=== PATIENT | male | born 2000 | race Caucasian/White ===

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

== ENCOUNTER 2021-07-22 18:16 | Observation (INO) ==
[2021-07-22] MEDS ORDERED: SODIUM CHLORIDE 0.9% 500 ML IV ONE (18:50)
--- NOTE | 2021-07-22 18:51 | XRay Report ---
XR chest 1V portable HISTORY: 21 years-old Male Chest Pain acute atypical chest pain COMPARISON: Chest radiographs 12/09/2019 TECHNIQUE: AP view of the chest FINDINGS: The cardiomediastinal and hilar silhouettes are within normal limits. No pneumothorax, pleural effusi on, airspace consolidation or overt pulmonary edema. Sigmoidal scoliosis of the thoracic spine redemo nstrated. The bones appear grossly intact. IMPRESSION: No acute process. ACT 112: Negative or not required by law. The above report was generated using voice recognition software. It may contain grammatical, syntax o r spelling errors. Electronically signed by: Valdemar Richey M.D. 07/22/2021 6:50 PM
[2021-07-22] MEDS ORDERED: FAMOTIDINE 20MG IV PUSH 20 MG/5 ML SYR IV STA (19:03)
[2021-07-22] MEDS ORDERED: ACETAMINOPHEN 1,000 MG/100 ML VIAL IV STA (19:03)
[2021-07-22 19:04] LABS: Basophils # (auto) 0.01 K/uL (0-0.2); Basophils % (auto) 0.1 %; Eosinophils # (auto) 0.03 K/uL (0-0.5); Eosinophils % (auto) 0.3 %; Hemoglobin 15.5 g/dL (14.0-18.0); Immature Granulocytes # (auto) 0.01 K/uL (0.00-0.02); Immature Granulocytes % (auto) 0.1 %; Lymphocytes # (auto) 1.35 K/uL (1.2-3.4); Lymphocytes % (auto) 14.6 %; Mean Corpuscular Hemoglobin 29.5 pg (25-34); Mean Corpuscular Hgb Conc 34.4 g/dL (32-36); Mean Corpuscular Volume 85.6 fL (80-100); Mean Platelet Volume 11.5 fL (7.4-10.4); Monocytes # (auto) 0.81 K/uL (0.11-0.59); Monocytes % (auto) 8.8 %; Neutrophils # (auto) 7.02 K/uL (1.4-6.5); Neutrophils % (auto) 76.1 %; Platelet Count 230 K/uL (130-400); RDW Coefficient of Variation 13.4 % (11.5-14.5); RDW Standard Deviation 41.9 fL (36.4-46.3); Red Blood Count 5.26 M/uL (4.7-6.1); White Blood Count 9.23 K/uL (4.8-10.8)
[2021-07-22 19:17] LABS: INR 1.1 (0.9-1.1); Partial Thromboplastin Time 27.2 Seconds (21.0-31.0); Prothrombin Time 11.7 Seconds (9.0-12.0)
[2021-07-22 19:26] LABS: BUN Creatinine Ratio 13.1 (10-20); Calcium 9.6 mg/dl (8.5-10.1); Creatinine Clr Calc Pharmacy 113.1 ml/min; Est GFR (African American) 145.1 ml/min; Est GFR (Non-African American) 125.2 ml/min
[2021-07-22 19:37] LABS: Albumin Globulin Ratio 1.9 (0.9-2); Albumin Level 4.8 gm/dl (3.4-5.0); Bilirubin,Total 1.1 mg/dl (0.2-1.0); Globulin 2.5 gm/dl (2.5-4.0); Magnesium 2.2 mg/dl (1.7-2.4); Phosphorus 4.2 mg/dl (2.5-4.9); Total Protein 7.3 gm/dl (6.0-8.3)
[2021-07-22 19:55] LABS: Lyme Ab IgG w/WB Rflx Negative (Negative); Lyme Ab IgM w/WB Rflx Negative (Negative)
--- NOTE | 2021-07-22 20:05 | Emergency Department Note ---
Impression & Plan Rhabdomyolysis, Elevated troponin, Transaminitis ED Provider Note NAME: JAY SANDERS AGE: 21 SEX: M ARRIVES VIA: Walk-In INFORMANT: Patient ED PROVIDER(S): Margarito Freitas MD CHIEF COMPLAINT: Chest pain, Body aches. PLAN: Disposition: Admit MEDICAL DECISION MAKING: The patient is a pleasant 21-year-old gentleman with a past medical history of aspiration pneumonia complicated by mediastinitis and myocarditis admitted to [facility] in December who presents to the emergency department accompanied by his mother for evaluation of generalized body aches and feverishness with shortness of breath over the past week. He reports his symptoms began on Sunday. He denies any cough or congestion, nausea, vomiting or diarrhea. He reports that the pain is worse when he sits up from lying flat but it is not particularly worse when he is flat. He adds that it feels better once he is sitting fully upright. He denies any known COVID-19 exposures. Denies any ticks bites. Patient denies any binge drinking of alcohol. He does report he had a "few" alcoholic drinks on Sunday but feel he was ever intoxicated. He denies any falls. He reports he had routine follow-up with cardiology in [place] at [facility] and reports that his EF had improved to "51%". On arrival the patient is fatigued appearing but no acute distress, afebrile stable vital signs. He appears clinically dry. He has no joint/extremity edema. He has full range of motion of all joints. No meningismus. EKG without overt acute ischemia. CXR negative for acute cardiopulmonary process. WBC, H/H, platelets wnl. Chemistry without acidosis. Electrolytes unremarkable. LFTs with transaminitis with AST, ALT 434, 106, respectively. Total bilirubin 1.1 with direct bilirubin 0.2. CPK 11K. Initial high sensitivity Troponin elevated at 32 without recent for comparison. BNP wnl. D-dimer wnl. Procalcitonin is undetectable. Lactic acid 0.8, wnl. Lyme screen negative. Anaplasma/Babesia smear negative. Covid-19 PCR negative. Influenza and RSV PCR negative. Upon re-evaluation the patient did feel somewhat improved following IVF hydration. Finding were reviewed with the patient and his mother and they agree with plan for admission for further management. Case was discussed with Dr. Gonzalez, [facility] hospitalist, who will evaluate the patient for admission. Triage Nursing notes reviewed and agree them. Prior medical records reviewed Vital Signs: reviewed and remarkable for no significant abnormalities Differential diagnosis: Cardiac ischemia, aortic dissection, pulmonary embolism, pneumothorax, pneumonia, pericarditis, myocarditis, esophageal rupture, GERD, cholecystitis, pancreatitis, musculoskeletal, as well as other pathologies. ER treatment provided: See below. Diagnostics interpreted by me: ECG: Sinus bradycardia, 56 bpm, no ectopy, incomplete RBBB, LAFB, no overt ST elevation or depression. Cardiac Monitoring: An order for continuous cardiac monitoring was placed and demonstrated Sinus bradycardia, 56 bpm, no ectopy, Laboratory studies: See below Imaging studies: See below Consultation(s): Case was discussed with Dr. Gonzalez, [facility] hospitalist, who will evaluate the patient for admission. HPI: The patient is a pleasant 21-year-old gentleman with a past medical history of aspiration pneumonia complicated by mediastinitis and myocarditis admitted to [facility] in December who presents to the emergency department accompanied by his mother for evaluation of generalized body aches and feverishness with shortness of breath over the past week. He reports his symptoms began on Sunday. He denies any cough or congestion, nausea, vomiting or diarrhea. He reports that the pain is worse when he sits up from lying flat but it is not particularly worse when he is flat. He adds that it feels better once he is sitting fully upright. He denies any known COVID-19 exposures. Denies any ticks bites. Patient denies any binge drinking of alcohol. He does report he had a "few" alcoholic drinks on Sunday but feel he was ever intoxicated. He denies any falls. He reports he had routine follow-up with cardiology in [place] at [facility] and reports that his EF had improved to "51%". ROS: See above HPI for pertinent positives & negatives. A total of 10 systems reviewed and were otherwise negative. VITALS:See Below PHYSICAL EXAMINATION: GENERAL: Awake, alert, fatigued-appearing, in no distress HENT: Normocephalic, atraumatic. Oropharynx with dry mucous membranes and otherwise unremarkable. EYES: Normal conjunctiva. Sclera non-icteric. NECK: Supple. No nuchal rigidity. FROM. No JVD. RESPIRATORY: Clear to auscultation. CARDIAC: Regular rate, normal rhythm. Extremities warm and well perfused. Pulses equal. ABDOMEN: Soft, non-distended. No tenderness to palpation. No rebound or guarding. No masses. RECTAL: Deferred. MUSCULOSKELETAL: Chest examination reveals no tenderness. The back is symmetrical on inspection without obvious abnormality. There is no CVA tenderness to palpation. No joint edema. LOWER EXTREMITIES: Calves are equal size bilaterally and non-tender. No edema. No discoloration. NEURO: Normal sensorium. No sensory or motor deficits noted. SKIN: No rash or jaundice noted. ED COURSE: Critical Care: I have personally spent greater than 35 minutes of critical care time in the direct management of this patient. This includes bedside care, interpretation of diagnostic studies, and testing, discussion with consultants, patient, and family members, and other required patient management activities. This 35 minutes is in excess of all separately billable procedures. Margarito Freitas MD Past Med/Surg History Medical History Acute myocarditis Aspiration pneumonia Cardiomyopathy Cough Elevated troponin Nonsustained ventricular tachycardia Family History Other Family history non-contributory Social History Smoking Status: Never smoker Hx Alcohol Use: Yes Hx Substance Use: Yes Preferred Language: Martiniquais Communication Ability: Effective Polisher And Buffer Required: No Beliefs That Will Affect Care: None Current Living Situation: Other Current Living Situation Comment: Apartment with roomates Feels Safe at Home: Yes Safety Concerns: Feels Safe At This Time Assistive Devices: Glasses Allergies Allergies Allergy/AdvReac Type Severity Reaction Status Date / Time No Known Allergies Allergy Verified 07/22/21 19:17 Home Meds Home Medications Medication Instructions Recorded Confirmed acetaminophen 325 mg tablet 650 mg PO DIRECTED PRN 07/22/21 07/22/21 (Tylenol) Previous Rx's Medication Instructions Recorded metoprolol succinate 100 mg 100 mg PO DAILY #90 tab 07/18/21 tablet,extended release 24 hr Results & Data (ED) Vital Signs Vital Signs - 24 hr 07/22/21 18:29 07/22/21 19:03 07/22/21 20:00 Temperature 36.4 C L Temperature Source Temporal Artery Scan Pulse Rate 70 Pulse Rate [Right Finger] 55 L 52 L Pulse Rhythm [Right Finger] Regular Regular Pulse Strength [Right Finger] Normal Normal Respiratory Rate 18 17 17 Respiratory Effort / Characteristics Non-Labored Spontaneous Non-Labored Spontaneous Respiratory Depth Normal Normal Respiratory Pattern Blood Pressure 98/65 L Blood Pressure [Right Arm] 102/58 L 100/55 L Blood Pressure Mean 76 Blood Pressure Mean [Right Arm] 72 70 Blood Pressure Position [Right Arm] Lying Lying Pulse Oximetry 97 96 96 Oxygen Delivery Method Room Air Room Air Room Air Sepsis Recent Fever Within 48 Hours No Sepsis New/Unexplained Change in Mental Status No Sepsis Action Taken by Nursing No Action Required 07/22/21 22:18 07/22/21 23:00 07/23/21 00:24 Temperature Temperature Source Pulse Rate Pulse Rate [Right Finger] 64 55 L 55 L Pulse Rhythm [Right Finger] Regular Pulse Strength [Right Finger] Normal Respiratory Rate 17 16 16 Respiratory Effort / Characteristics Non-Labored Spontaneous Non-Labored Spontaneous Non-Labored Spontaneous Respiratory Depth Normal Normal Normal Respiratory Pattern Regular Blood Pressure Blood Pressure [Right Arm] 105/64 109/55 L 114/63 Blood Pressure Mean Blood Pressure Mean [Right Arm] 77 73 80 Blood Pressure Position [Right Arm] Lying Pulse Oximetry 100 97 98 Oxygen Delivery Method Room Air Room Air Room Air Sepsis Recent Fever Within 48 Hours Sepsis New/Unexplained Change in Mental Status Sepsis Action Taken by Nursing Laboratory Data Attestation: I reviewed the patient's lab results. Result diagrams: 07/22/21 18:53 07/22/21 18:53 Lab Results 07/22/21 07/22/21 07/22/21 Range/Units 18:32 18:53 18:53 WBC 9.23 (4.8-10.8) K/uL RBC 5.26 (4.7-6.1) M/uL Hgb 15.5 (14.0-18.0) g/dL Hct 45.0 (42-52) % MCV 85.6 (80-100) fL MCH 29.5 (25-34) pg MCHC 34.4 (32-36) g/dL RDW Std Deviation 41.9 (36.4-46.3) fL RDW Coeff of Josue 13.4 (11.5-14.5) % Plt Count 230 (130-400) K/uL MPV 11.5 H (7.4-10.4) fL Immature Gran % (Auto) 0.1 % Neut % (Auto) 76.1 % Lymph % (Auto) 14.6 % [place] % (Auto) 8.8 % Eos % (Auto) 0.3 % Baso % (Auto) 0.1 % Neut # (Auto) 7.02 H (1.4-6.5) K/uL Lymph # (Auto) 1.35 (1.2-3.4) K/uL [place] # (Auto) 0.81 H (0.11-0.59) K/uL Eos # (Auto) 0.03 (0-0.5) K/uL Baso # (Auto) 0.01 (0-0.2) K/uL Immature Gran # (Auto) 0.01 (0.00-0.02) K/uL PT (9.0-12.0) Seconds INR (0.9-1.1) APTT (21.0-31.0) Seconds PTT Ratio D-Dimer 220 (0-500) ug/L FEU Sodium (136-145) mmol/L Potassium (3.5-5.1) mmol/L Chloride (98-107) mmol/L Carbon Dioxide (21-32) mmol/L Anion Gap (3-11) BUN (6-23) mg/dl Creatinine (0.6-1.4) mg/dl Est Cr Clr Drug Dosing ml/min Est GFR ( Amer) ml/min Est GFR (Non-Af Amer) ml/min BUN/Creatinine Ratio (10-20) Glucose (70-99(Fasting)) mg/dl Lactate (0.4-2.0) mmol/L Calcium (8.5-10.1) mg/dl Phosphorus (2.5-4.9) mg/dl Magnesium (1.7-2.4) mg/dl Total Bilirubin (0.2-1.0) mg/dl Direct Bilirubin (0-0.2) mg/dl AST (13-39) U/L ALT (7-52) U/L Alkaline Phosphatase (34-104) U/L Total Creatine Kinase (30-223) U/L Troponin I High Sens 32.8 H (0-20) pg/ml B-Natriuretic Peptide (0-100) pg/ml Total Protein (6.0-8.3) gm/dl Albumin (3.4-5.0) gm/dl Globulin (2.5-4.0) gm/dl Albumin/Globulin Ratio (0.9-2) Procalcitonin (0-0.5) ng/ml Anaplasma Smear Babesia Smear Lyme Disease IgG Ab (Negative) Lyme Disease IgM Ab (Negative) SARS-CoV-2 (PCR) (Negative) Influenza Type A (PCR) (Neg) Influ A Molecular Assay Influenza Type B (PCR) (Neg) Influ B Molecular Assay RSV (RT-PCR) (Neg) SARS-CoV-2 RNA (VIRA) 07/22/21 07/22/21 07/22/21 Range/Units 18:53 18:53 18:53 WBC (4.8-10.8) K/uL RBC (4.7-6.1) M/uL Hgb (14.0-18.0) g/dL Hct (42-52) % MCV (80-100) fL MCH (25-34) pg MCHC (32-36) g/dL RDW Std Deviation (36.4-46.3) fL RDW Coeff of Josue (11.5-14.5) % Plt Count (130-400) K/uL MPV (7.4-10.4) fL Immature Gran % (Auto) % Neut % (Auto) % Lymph % (Auto) % [place] % (Auto) % Eos % (Auto) % Baso % (Auto) % Neut # (Auto) (1.4-6.5) K/uL Lymph # (Auto) (1.2-3.4) K/uL Col[place] # (Auto) (0.11-0.59) K/uL Eos # (Auto) (0-0.5) K/uL Baso # (Auto) (0-0.2) K/uL Immature Gran # (Auto) (0.00-0.02) K/uL PT 11.7 (9.0-12.0) Seconds INR 1.1 (0.9-1.1) APTT 27.2 (21.0-31.0) Seconds PTT Ratio 1.0 D-Dimer (0-500) ug/L FEU Sodium 137 (136-145) mmol/L Potassium 4.0 (3.5-5.1) mmol/L Chloride 103 (98-107) mmol/L Carbon Dioxide 27 (21-32) mmol/L Anion Gap 7 (3-11) BUN 11 (6-23) mg/dl Creatinine 0.84 (0.6-1.4) mg/dl Est Cr Clr Drug Dosing 113.1 ml/min Est GFR ( Amer) 145.1 ml/min Est GFR (Non-Af Amer) 125.2 ml/min BUN/Creatinine Ratio 13.1 (10-20) Glucose 82 (70-99(Fasting)) mg/dl Lactate (0.4-2.0) mmol/L Calcium 9.6 (8.5-10.1) mg/dl Phosphorus 4.2 (2.5-4.9) mg/dl Magnesium 2.2 (1.7-2.4) mg/dl Total Bilirubin 1.1 H (0.2-1.0) mg/dl Direct Bilirubin (0-0.2) mg/dl AST 434 H (13-39) U/L ALT 106 H (7-52) U/L Alkaline Phosphatase 51 (34-104) U/L Total Creatine Kinase 56435 H (30-223) U/L Troponin I High Sens (0-20) pg/ml B-Natriuretic Peptide (0-100) pg/ml Total Protein 7.3 (6.0-8.3) gm/dl Albumin 4.8 (3.4-5.0) gm/dl Globulin 2.5 (2.5-4.0) gm/dl Albumin/Globulin Ratio 1.9 (0.9-2) Procalcitonin (0-0.5) ng/ml Anaplasma Smear Babesia Smear Lyme Disease IgG Ab Negative (Negative) Lyme Disease IgM Ab Negative (Negative) SARS-CoV-2 (PCR) (Negative) Influenza Type A (PCR) (Neg) Influ A Molecular Assay Influenza Type B (PCR) (Neg) Influ B Molecular Assay RSV (RT-PCR) (Neg) SARS-CoV-2 RNA (VIRA) 07/22/21 07/22/21 07/22/21 Range/Units 18:53 18:53 18:53 WBC (4.8-10.8) K/uL RBC (4.7-6.1) M/uL Hgb (14.0-18.0) g/dL Hct (42-52) % MCV (80-100) fL MCH (25-34) pg MCHC (32-36) g/dL RDW Std Deviation (36.4-46.3) fL RDW Coeff of Josue (11.5-14.5) % Plt Count (130-400) K/uL MPV (7.4-10.4) fL Immature Gran % (Auto) % Neut % (Auto) % Lymph % (Auto) % Col[place] % (Auto) % Eos % (Auto) % Baso % (Auto) % Neut # (Auto) (1.4-6.5) K/uL Lymph # (Auto) (1.2-3.4) K/uL [place] # (Auto) (0.11-0.59) K/uL Eos # (Auto) (0-0.5) K/uL Baso # (Auto) (0-0.2) K/uL Immature Gran # (Auto) (0.00-0.02) K/uL PT (9.0-12.0) Seconds INR (0.9-1.1) APTT (21.0-31.0) Seconds PTT Ratio D-Dimer (0-500) ug/L FEU Sodium (136-145) mmol/L Potassium (3.5-5.1) mmol/L Chloride (98-107) mmol/L Carbon Dioxide (21-32) mmol/L Anion Gap (3-11) BUN (6-23) mg/dl Creatinine (0.6-1.4) mg/dl Est Cr Clr Drug Dosing ml/min Est GFR ( Amer) ml/min Est GFR (Non-Af Amer) ml/min BUN/Creatinine Ratio (10-20) Glucose (70-99(Fasting)) mg/dl Lactate (0.4-2.0) mmol/L Calcium (8.5-10.1) mg/dl Phosphorus (2.5-4.9) mg/dl Magnesium (1.7-2.4) mg/dl Total Bilirubin (0.2-1.0) mg/dl Direct Bilirubin 0.2 (0-0.2) mg/dl AST (13-39) U/L ALT (7-52) U/L Alkaline Phosphatase (34-104) U/L Total Creatine Kinase (30-223) U/L Troponin I High Sens (0-20) pg/ml B-Natriuretic Peptide (0-100) pg/ml Total Protein (6.0-8.3) gm/dl Albumin (3.4-5.0) gm/dl Globulin (2.5-4.0) gm/dl Albumin/Globulin Ratio (0.9-2) Procalcitonin < 0.05 (0-0.5) ng/ml Anaplasma Smear See Comment Babesia Smear See Comment Lyme Disease IgG Ab (Negative) Lyme Disease IgM Ab (Negative) SARS-CoV-2 (PCR) (Negative) Influenza Type A (PCR) (Neg) Influ A Molecular Assay Influenza Type B (PCR) (Neg) Influ B Molecular Assay RSV (RT-PCR) (Neg) SARS-CoV-2 RNA (VIRA) 07/22/21 07/22/21 07/22/21 Range/Units 19:08 19:08 19:08 WBC (4.8-10.8) K/uL RBC (4.7-6.1) M/uL Hgb (14.0-18.0) g/dL Hct (42-52) % MCV (80-100) fL MCH (25-34) pg MCHC (32-36) g/dL RDW Std Deviation (36.4-46.3) fL RDW Coeff of Josue (11.5-14.5) % Plt Count (130-400) K/uL MPV (7.4-10.4) fL Immature Gran % (Auto) % Neut % (Auto) % Lymph % (Auto) % [place] % (Auto) % Eos % (Auto) % Baso % (Auto) % Neut # (Auto) (1.4-6.5) K/uL Lymph # (Auto) (1.2-3.4) K/uL [place] # (Auto) (0.11-0.59) K/uL Eos # (Auto) (0-0.5) K/uL Baso # (Auto) (0-0.2) K/uL Immature Gran # (Auto) (0.00-0.02) K/uL PT (9.0-12.0) Seconds INR (0.9-1.1) APTT (21.0-31.0) Seconds PTT Ratio D-Dimer (0-500) ug/L FEU Sodium (136-145) mmol/L Potassium (3.5-5.1) mmol/L Chloride (98-107) mmol/L Carbon Dioxide (21-32) mmol/L Anion Gap (3-11) BUN (6-23) mg/dl Creatinine (0.6-1.4) mg/dl Est Cr Clr Drug Dosing ml/min Est GFR ( Amer) ml/min Est GFR (Non-Af Amer) ml/min BUN/Creatinine Ratio (10-20) Glucose (70-99(Fasting)) mg/dl Lactate (0.4-2.0) mmol/L Calcium (8.5-10.1) mg/dl Phosphorus (2.5-4.9) mg/dl Magnesium (1.7-2.4) mg/dl Total Bilirubin (0.2-1.0) mg/dl Direct Bilirubin (0-0.2) mg/dl AST (13-39) U/L ALT (7-52) U/L Alkaline Phosphatase (34-104) U/L Total Creatine Kinase (30-223) U/L Troponin I High Sens (0-20) pg/ml B-Natriuretic Peptide (0-100) pg/ml Total Protein (6.0-8.3) gm/dl Albumin (3.4-5.0) gm/dl Globulin (2.5-4.0) gm/dl Albumin/Globulin Ratio (0.9-2) Procalcitonin (0-0.5) ng/ml Anaplasma Smear Babesia Smear Lyme Disease IgG Ab (Negative) Lyme Disease IgM Ab (Negative) SARS-CoV-2 (PCR) NEGATIVE (Negative) Influenza Type A (PCR) Negative (Neg) Influ A Molecular Assay Cancelled Influenza Type B (PCR) Negative (Neg) Influ B Molecular Assay Cancelled RSV (RT-PCR) Negative (Neg) SARS-CoV-2 RNA (VIRA) Cancelled 07/22/21 07/22/21 Range/Units 21:24 21:26 WBC (4.8-10.8) K/uL RBC (4.7-6.1) M/uL Hgb (14.0-18.0) g/dL Hct (42-52) % MCV (80-100) fL MCH (25-34) pg MCHC (32-36) g/dL RDW Std Deviation (36.4-46.3) fL RDW Coeff of Josue (11.5-14.5) % Plt Count (130-400) K/uL MPV (7.4-10.4) fL Immature Gran % (Auto) % Neut % (Auto) % Lymph % (Auto) % [place] % (Auto) % Eos % (Auto) % Baso % (Auto) % Neut # (Auto) (1.4-6.5) K/uL Lymph # (Auto) (1.2-3.4) K/uL [place] # (Auto) (0.11-0.59) K/uL Eos # (Auto) (0-0.5) K/uL Baso # (Auto) (0-0.2) K/uL Immature Gran # (Auto) (0.00-0.02) K/uL PT (9.0-12.0) Seconds INR (0.9-1.1) APTT (21.0-31.0) Seconds PTT Ratio D-Dimer (0-500) ug/L FEU Sodium (136-145) mmol/L Potassium (3.5-5.1) mmol/L Chloride (98-107) mmol/L Carbon Dioxide (21-32) mmol/L Anion Gap (3-11) BUN (6-23) mg/dl Creatinine (0.6-1.4) mg/dl Est Cr Clr Drug Dosing ml/min Est GFR ( Amer) ml/min Est GFR (Non-Af Amer) ml/min BUN/Creatinine Ratio (10-20) Glucose (70-99(Fasting)) mg/dl Lactate 0.7 (0.4-2.0) mmol/L Calcium (8.5-10.1) mg/dl Phosphorus (2.5-4.9) mg/dl Magnesium (1.7-2.4) mg/dl Total Bilirubin (0.2-1.0) mg/dl Direct Bilirubin (0-0.2) mg/dl AST (13-39) U/L ALT (7-52) U/L Alkaline Phosphatase (34-104) U/L Total Creatine Kinase (30-223) U/L Troponin I High Sens (0-20) pg/ml B-Natriuretic Peptide 18 (0-100) pg/ml Total Protein (6.0-8.3) gm/dl Albumin (3.4-5.0) gm/dl Globulin (2.5-4.0) gm/dl Albumin/Globulin Ratio (0.9-2) Procalcitonin (0-0.5) ng/ml Anaplasma Smear Babesia Smear Lyme Disease IgG Ab (Negative) Lyme Disease IgM Ab (Negative) SARS-CoV-2 (PCR) (Negative) Influenza Type A (PCR) (Neg) Influ A Molecular Assay Influenza Type B (PCR) (Neg) Influ B Molecular Assay RSV (RT-PCR) (Neg) SARS-CoV-2 RNA (VIRA) Administered Medications Discontinued Medications Sodium Chloride (Nss) 500 mls @ 999 mls/hr IV .Q31M ONE Stop: 07/22/21 19:20 Last Infusion: 07/22/21 19:45 Dose: 0 mls/hr Documented by: [id number] Admin: 07/22/21 19:17 Dose: 999 mls/hr Documented by: [id number] Acetaminophen (Ofirmev) 1,000 mg in 100 mls @ 400 mls/hr IV NOW STA Stop: 07/22/21 19:17 Last Infusion: 07/22/21 19:25 Dose: 0 mls/hr Documented by: [id number] Admin: 07/22/21 19:12 Dose: 400 mls/hr Documented by: [id number] Famotidine (Pepcid 20mg Iv Push) 20 mg in 5 mls @ 2.5 mls/min IV NOW STA Stop: 07/22/21 19:04 Last Admin: 07/22/21 19:12 Dose: 2.5 mls/min Documented by: [id number] Sodium Chloride (Nss 1000ml) 1,000 mls @ 999 mls/hr IV .Q1H1M ONE Stop: 07/22/21 22:03 Last Infusion: 07/22/21 22:28 Dose: 0 mls/hr Documented by: [id number] Admin: 07/22/21 21:28 Dose: 999 mls/hr Documented by: [id number] Imaging Data Radiologist's Impression: Chest X-Ray 04/15/22 18:32 XR chest 1V portable HISTORY: 21 years-old Male Chest Pain acute atypical chest pain COMPARISON: Chest radiographs 12/09/2019 TECHNIQUE: AP view of the chest FINDINGS: The cardiomediastinal and hilar silhouettes are within normal limits. No pneumothorax, pleural effusion, airspace consolidation or overt pulmonary edema. Sigmoidal scoliosis of the thoracic spine redemonstrated. The bones appear grossly intact. IMPRESSION: No acute process. ACT 112: Negative or not required by law. The above report was generated using voice recognition software. It may contain grammatical, syntax or spelling errors. Electronically signed by: Valdemar Richey M.D. 07/22/2021 6:50 PM Discharge Plan Visit Data Chief Complaint: Cardiac Assessment Stated Complaint: FATIGUE, MUSCLE PAIN, WEAKNESS, SOB ED Provider: Margarito Freitas Discharge Problem: Rhabdomyolysis, Elevated troponin, Transaminitis Patient Disposition: Admitted As Inpatient Discharge Problem: Rhabdomyolysis Qualifiers: Rhabdomyolysis type: non-traumatic Qualified Code(s): M62.82 - Rhabdomyolysis
[2021-07-22 20:09] LABS: Influenza A virus by PCR Negative (Neg); Influenza B virus by PCR Negative (Neg); RSV by PCR Negative (Neg); SARS CoV2 RNA(COVID-19) InHosp NEGATIVE (Negative)
[2021-07-22] MEDS ORDERED: SODIUM CHLORIDE 0.9% 1000ML 1,000 ML IV ONE (21:03)
[2021-07-22 21:22] LABS: D Dimer 220 ug/L FEU (0-500)
--- NOTE | 2021-07-23 00:05 | History & Physical Report ---
Date of Service July 23, 2021 Assessment & Plan (1) Chest discomfort: (2) Elevated LFTs: (3) Elevated troponin: (4) Elevated creatine kinase: Plan: Macho Ely is a 21-year-old male with a past medical history of aspiration pneumonia with mediastinitis and myocarditis with resulting reduced ejection fraction who presents today due to a 5-day history of chest discomfort and body aches. Found to have elevated troponin, transaminitis, elevated creatinine kin ase. Chest discomfort with elevated troponin Troponin to 32.8, EKG with sinus bradycardia, sinus arrhythmia, pre-existing incomplete RBBB Patient with a history of myocarditis in December 2019 and subsequent reduced ejection fraction Most recent echo at [facility] on July 05, 2021 showing EF of 51%, per patient and mother at bedside consider requesting records for confirmation Unclear etiology, potentially viral illness with mild demand ischemia in a patient with decreased EF no current signs of ME, pericarditis Lyme negative, Anaplasma/Babesia smear negative (PCR pending) Consult cardiology Repeat echo in a.m. as last echo was prior to current symptoms Trend Trop Admit to med telemetry Continuous cardiac monitoring Continue home metoprolol succinate [place] [address] [place] Patient reports dancing for several hours on Sunday night, but otherwise no other vigorous/significant exercise Gentle IV fluids in the setting of mildly decreased EF as above Repeat CK in a.m. Transaminitis Unclear etiology, patient had elevated transaminitis on his prior admission in December 2019 At that visit, transaminitis thought to be more likely due to alcohol consumption, which had been heavier at that instance this time around patient admits to 3 drinks on Sunday evening, night prior to onset of symptoms However, would not necessarily expect transaminitis from that level of alcohol consumption Check hep B, hep C, EBV, coxsackie, monotest Repeat CMP in a.m. DVT prophylaxis: SCDs, no chemoprophylaxis Diet: Heart healthy Dispo: Admit for observation to med telemetry CODE STATUS: Full History of Present Illness Primary Care Provider: [facility] Macho Ely is a 21-year-old male with a past medical history of aspiration pneumonia with mediastinitis and myocarditis with resulting reduced ejection fraction who presents today due to a 5-day history of chest discomfort and body aches. He also reports having dull chest pain, specifically when sitting up from laying in flat position. Patient specifies that he only feels the pain when he is in the process of sitting up, not when he is laying flat or when he is sitting. Denies any known sick contacts, cough, fever, chills, nausea, vomiting, diarrhea, rashes. Patient states that he was out dancing at a club on Sunday night and had a total of 3 alcoholic beverages, which he states had 1 shot of alcohol each. Started to feel above symptoms the next day. In the ED, patient received NSS 2 L boluses, received acetaminophen 1000 mg x 1, famotidine 20 mg x 1. He had lab work showing normal white count, normal hemoglobin, normal platelets. Normal electrolytes. Did have elevated AST to 434, ALT to 106, T bili to 1.1[place] [address], high-sensitivity troponin to 32.8. EKG showed sinus bradycardia with sinus arrhythmia and a pre-existing incomplete right bundle branch block. Lyme testing was negative, Anaplasma and babesiosis smears were negative, with PCR's for each pending. Chest x-ray showed no acute process. Allergies Allergy/AdvReac Type Severity Reaction Status Date / Time No Known Allergies Allergy Verified 07/22/21 19:17 Home Medications Medication Instructions Recorded Confirmed Type metoprolol succinate 100 mg 100 mg PO DAILY #90 tab 07/18/21 07/22/21 Rx tablet,extended release 24 hr acetaminophen 325 mg tablet 650 mg PO DIRECTED PRN 07/22/21 07/22/21 History (Tylenol) Past Med/Surg History Medical History Acute myocarditis Aspiration pneumonia Cardiomyopathy Cough Elevated troponin Nonsustained ventricular tachycardia Family History Other Family history non-contributory Social History Smoking Status: Never smoker Hx Alcohol Use: Yes Hx Substance Use: Yes Preferred Language: Peruvian Communication Ability: Effective Religious Studies Professor Required: No Beliefs That Will Affect Care: None Current Living Situation: Other Current Living Situation Comment: Apartment with roomates Feels Safe at Home: Yes Safety Concerns: Feels Safe At This Time Assistive Devices: Glasses Review of Systems 2 Review of Systems: Per HPI Physical Exam Physical Exam: GENERAL: A&Ox3. NAD. HEENT: PERRL, EOMI. Moist mucous membranes. NECK: No JVD. No lymphadenopathy. CHEST/LUNGS: CTAB A/P. No crackles, wheezes, rales, rhonchi. HEART: Bradycardic, regular rhythm. No m/g/r. ABDOMEN: NT/ND, soft. BS+ x4 EXTREMITIES: No cyanosis, no clubbing, no edema SKIN: Warm and dry. No rashes or lesions. No jaundice. PSYCHIATRIC: Euthymic affect, no SI, no pressured speech, no hallucinations NEUROLOGIC: No FND. Results & Data Results & Data ([facility]) Vital Signs (Past 12 Hours) Vital Signs Temp Pulse Pulse Resp BP BP Pulse Ox 07/22/21 23:00 55 L 16 109/55 L 97 07/22/21 22:18 64 17 105/64 100 07/22/21 20:00 52 L 17 100/55 L 96 07/22/21 19:03 55 L 17 102/58 L 96 07/22/21 18:29 36.4 C L 70 18 98/65 L 97 Code Status & VTE Plan VTE Prophylaxis Plan VTE Prophylaxis will be ordered: Yes Supervising Physician Co-Signing Physician Notes Attending addendum: I have physically seen this patient, have supervised the medical residents activities, and agree with the H&P unless as otherwise noted. Assessment and Plan: Elevated troponin- History of myocarditis, cardiomyopathy, nonsustained V. tach. The patient will be admitted to telemetry for serial cardiac enzymes, serial EKG's, cardiac rhythm monitoring and a 2-D echocardiogram with Dopplers. May just be secondary to rhabdomyolysis Consult cardiology Rhabdomyolysis- CK 11,090, AST 434, ALT 106, total bilirubin 1.1. Follow laboratory serially Received 1500 mils normal saline from the ED. Continue with IV fluid rehydration Most recent ejection fraction with his home medical laboratory manager reportedly showed EF of 51% Lyme testing negative, other viral testing pending Remaining orders and notations noted Resident Activity Tracking Resident Involvement: Resident Care Provided Care Provided: Adult [facility]
[2021-07-23] MEDS ORDERED: ACETAMINOPHEN 325 MG TAB PO PRN (01:07)
[2021-07-23] MEDS ORDERED: POLYETHYLENE (MIRALAX) 17 GM PACK PO PRN (01:07)
[2021-07-23] MEDS: SODIUM CHLORIDE 0.9% 1000ML 1,000 ML IV SCH ×4 (01:19→21:03)
--- NOTE | 2021-07-23 08:07 | Communication Note ---
Date of Service: July 23, 2021 Feeling well this AM. Describes muscle pain/soreness as being mostly in extremities without ab or back pain. Says changing position/orientation is the most painful (laying to sitting, sitting to standing, standing to sitting). Denies similar degree of pain with previous hospitalization. No family hx autoimmune conditions other than hyperthyroidism and graves disease. no significant hospitalizations as a child. Labs: Pending: Coxsackie panel, Hepatitis B titers, EBV titers. Blood cultures pending. Negative: Monospot, COVID, Lyme, Anaplasma and Babesia smears WBC dropped to 4, Hg dropped from 15 to 13, likely due to hemoconcentration altered after fluid resuscitation. Lymphopenic Leukopenia. Abnormal liver enzymes decreasing: AST 264, ALT 84 CK decreasing from 11k to 5k ECHO: low normal EF Plan: Rhabdo - NS IV 250 ml/hr, monitor CK and Cr daily as well as I/O Qshift Muscle Pain - due to rhabdo from viral onset vs. autoimmune? panels pending. If they do not continue to improve or symptoms worsen, would consider autoimmune workup in the setting of transaminitis. hx myocarditis - does not appear involved at this time. Troponins stable/downtrending. ECHO wnl and reassuring. no chest pains. I personally examined the patient and verified all richardson points of history and exam, discussed case, and agree with decision making with Dr Tan feeling better but still some malaise and lightheaded. feels like fluids have helped a lot. vitals noted nad heent nc at mmm breathing unlabored no accessory muscles good effort skin no rashes no pallor or icterus rhabdo - fortunately mild and no ARF. most strongly suspect viral/post viral immune mediated. improving on fluids. continue fluids. since had this now, post viral myocarditis 2019 -- discussed possibility of underlying autoimmune as unlikely, but real, possibility. after thorough discussions - if viral titers are negative when they come back - would be reasonable to pursue autoimmune w/u; or, even if current situation ends up strongly appearing viral - if another post-viral type syndrome happens for any reason then would rec autoimmune w/u. for now supportive care transaminitis - likely both muscle transaminases and probably liver - viral mediated. improving mild trop elevation - fortunately went nowhere and echo reassuring. overall doubt much true acute myocarditis at play, if at all. appreciate cardiology input otherwise as above Resident Activity Tracking Resident Involvement: Resident Care Provided Care Provided: Adult [facility] Medicine
[2021-07-23] MEDS: METOPROLOL SUCC 50MG EXT REL TAB PO SCH (09:56)
--- NOTE | 2021-07-23 10:12 | XCELERA ---
[id number]
[2021-07-23 10:16] LABS: Basophils # (auto) 0.01 K/uL (0-0.2); Basophils % (auto) 0.2 %; Eosinophils # (auto) 0.08 K/uL (0-0.5); Eosinophils % (auto) 1.7 %; Hematocrit (blood only) 38.3 % (42-52); Hemoglobin 13.1 g/dL (14.0-18.0); Immature Granulocytes # (auto) 0.01 K/uL (0.00-0.02); Immature Granulocytes % (auto) 0.2 %; Lymphocytes # (auto) 1.08 K/uL (1.2-3.4); Lymphocytes % (auto) 22.6 %; Mean Corpuscular Hemoglobin 29.3 pg (25-34); Mean Corpuscular Hgb Conc 34.2 g/dL (32-36); Mean Corpuscular Volume 85.7 fL (80-100); Mean Platelet Volume 11.4 fL (7.4-10.4); Monocytes % (auto) 10.5 %; Neutrophils % (auto) 64.8 %; Platelet Count 172 K/uL (130-400); RDW Coefficient of Variation 13.6 % (11.5-14.5); Red Blood Count 4.47 M/uL (4.7-6.1); White Blood Count 4.78 K/uL (4.8-10.8)
[2021-07-23 10:55] LABS: Anion Gap 5 (3-11); BUN Creatinine Ratio 14.7 (10-20); Blood Urea Nitrogen 10 mg/dl (6-23); Calcium 8.7 mg/dl (8.5-10.1); Carbon Dioxide 28 mmol/L (21-32); Chloride 107 mmol/L (98-107); Creatinine Clr Calc Pharmacy 180.6 ml/min; Est GFR (African American) > 150.0 ml/min; Est GFR (Non-African American) 136.5 ml/min; Glucose 91 mg/dl (70-99(Fasting)); Potassium 3.7 mmol/L (3.5-5.1); Sodium 140 mmol/L (136-145)
[2021-07-23 10:58] LABS: Alanine Aminotransferase 84 U/L (7-52); Albumin Globulin Ratio 1.9 (0.9-2); Alkaline Phosphatase 41 U/L (34-104); Aspartate Aminotransferase 264 U/L (13-39); Bilirubin,Total 1.1 mg/dl (0.2-1.0); Globulin 2.1 gm/dl (2.5-4.0); Total Protein 6.1 gm/dl (6.0-8.3)
--- NOTE | 2021-07-23 11:00 | Cardiology Consultation ---
Date of Consultation July 23, 2021 Assessment & Plan (1) Chest discomfort: (2) Elevated troponin: (3) Cardiomyopathy: 1. Chest pain: This seems to be a very minor feature of his presentation. It seems that most of his symptoms involved the muscles of the limbs. I do not believe this is auto service representative of a cardiac process. He does seem to have some muscle damage based on his elevated creatinine kinase. Perhaps is a very minor cardiac involvement in this process as well. 2. Elevated troponin: Very mild elevation without escalation. Certainly no acute coronary syndrome. I do not believe there is a primary cardiac process at work year. The last measurement of troponin was when he was admitted with myocarditis that was significantly elevated. It is possible that he has a very mild chronic elevation based on his known history of cardiomyopathy. Otherwise a very mild elevation possibly related to the current elevation in creatinine kinase. 3. Cardiomyopathy: Overall LV function appears normal. No regional wall motion abnormalities. Generally speaking not symptomatic related to his history of myocarditis and cardiomyopathy. At this point I think it is reasonable continue him on his current dose of metoprolol succinate. 4. Ventricular tachycardia: He has a history of nonsustained VT. No ventricular tachycardia or significant ventricular arrhythmias on telemetry monitoring. Continue metoprolol At this point I do not believe he requires any additional cardiac evaluation. Can follow up as previously scheduled on an outpatient basis his primary appliance worker. History of Present Illness Reason for Consultation: Chest pain Requesting Physician: Clem Attending Physician: Cory Vergara DO History of Present Illness The patient is a 21-year-old gentleman with a history of myocarditis dating back to December of 2019. At that time the patient was noted to have elevated cardiac biomarkers and reduced LV systolic function. He was placed on medical therapy and actually has done quite well in the interim. He states that approximately 6 days ago he began to experience some symptoms of achiness and discomfort involving his arms and legs. This was fairly mild at 1st but became more severe over the course of the week. His symptoms tended to be worse in the mornings when he 1st started moving around. The symptoms were associated with some mild lightheadedness and mild dyspnea. He did have brief episodes of chest discomfort as well. Initially these were fairly intermittent, mild and fleeting in nature. Later in the course of his in [facility] he did have some more constant sensation of chest discomfort. He states that his symptoms were less severe in the morning when he slept upright the night before admission. There does not appear to be any pleuritic component. He denies any associated fevers or ch ills. No upper respiratory symptoms. No nausea or vomiting. Claims to be eating and drinking well. No sore throat or pharyngitis. Since the diagnosis of myocarditis in 2019 he has been less active. This was based on activity recommendations. However, he is able to complete normal activity such as walking and at ascending stairs without significant limitation. He generally does not have symptoms of chest pain or limiting dyspnea. He does not recall any recent palpitations. No syncope. Allergies Allergy/AdvReac Type Severity Reaction Status Date / Time No Known Allergies Allergy Verified 07/22/21 19:17 Home Medications Medication Instructions Recorded Confirmed Type metoprolol succinate 100 mg 100 mg PO DAILY #90 tab 07/18/21 07/22/21 Rx tablet,extended release 24 hr acetaminophen 325 mg tablet 650 mg PO DIRECTED PRN 07/22/21 07/22/21 History (Tylenol) Patient History Medical History Acute myocarditis Aspiration pneumonia Cardiomyopathy Cough Elevated troponin Nonsustained ventricular tachycardia Family History Other Family history non-contributory Social History Smoking Status: Never smoker Hx Alcohol Use: Yes Hx Substance Use: Yes Preferred Language: Gabonese Communication Ability: Effective Specialty Plant Supervisor Required: No Beliefs That Will Affect Care: None Current Living Situation: Other Current Living Situation Comment: Apartment with roomates Feels Safe at Home: Yes Safety Concerns: Feels Safe At This Time Assistive Devices: Glasses Review of Systems Review of Systems: Per HPI Physical Exam Physical Exam: The patient is alert and oriented. Mood and affect appeared normal. He answered all questions appropriately. HEENT: Pupils are equal and reactive to light and accommodation. Extraocular movements are intact. The sclerae are anicteric. Neuro: Cranial nerves intact Lungs: Clear to auscultation bilaterally. He has good air movement without use of accessory muscles. No rales wheezes or rhonchi. Cardiac: Heart demonstrates a regular rate and rhythm. Normal S1 and S2. No murmurs on examination. Pulses: The patient has palpable radial pulses bilaterally that are equal in intensity Extremities: There was no evidence of hypoperfusion. There is no cyanosis or clubbing. There is no edema. Skin: I did not appreciate any rashes on examination today. Results & Data ([facility]) Vital Signs (Past 12 Hours) Vital Signs Temp Pulse Pulse Resp BP BP BP 07/23/21 07:32 36.6 C 57 L 16 102/61 07/23/21 06:15 52 L 07/23/21 03:07 36.9 C 58 L 16 100/61 07/23/21 01:40 77 07/23/21 01:07 36.9 C 65 20 106/64 07/23/21 00:57 60 16 115/74 07/23/21 00:24 55 L 16 114/63 07/22/21 23:00 55 L 16 109/55 L Pulse Ox 07/23/21 07:32 95 07/23/21 06:15 07/23/21 03:07 97 07/23/21 01:40 07/23/21 01:07 98 07/23/21 00:57 98 07/23/21 00:24 98 07/22/21 23:00 97 Laboratory Results Abnormal Lab Results 07/22/21 07/22/21 07/22/21 18:32 18:53 18:53 WBC 9.23 RBC 5.26 Hgb 15.5 Hct 45.0 MCV 85.6 MCH 29.5 MCHC 34.4 RDW Std Deviation 41.9 RDW Coeff of Josue 13.4 Plt Count 230 MPV 11.5 H Immature Gran % (Auto) 0.1 Neut % (Auto) 76.1 Lymph % (Auto) 14.6 [place] % (Auto) 8.8 Eos % (Auto) 0.3 Baso % (Auto) 0.1 Neut # (Auto) 7.02 H Lymph # (Auto) 1.35 [place] # (Auto) 0.81 H Eos # (Auto) 0.03 Baso # (Auto) 0.01 Immature Gran # (Auto) 0.01 PT INR APTT PTT Ratio D-Dimer 220 Sodium Potassium Chloride Carbon Dioxide Anion Gap BUN Creatinine Est Cr Clr Drug Dosing Est GFR ( Amer) Est GFR (Non-Af Amer) BUN/Creatinine Ratio Glucose Lactate Calcium Phosphorus Magnesium Total Bilirubin Direct Bilirubin AST ALT Alkaline Phosphatase Total Creatine Kinase Troponin I High Sens 32.8 H B-Natriuretic Peptide Total Protein Albumin Globulin Albumin/Globulin Ratio Procalcitonin Anaplasma Smear Babesia Smear Lyme Disease IgG Ab Lyme Disease IgM Ab SARS-CoV-2 (PCR) Monoscreen Influenza Type A (PCR) Influ A Molecular Assay Influenza Type B (PCR) Influ B Molecular Assay RSV (RT-PCR) SARS-CoV-2 RNA (VIRA) 07/22/21 07/22/21 07/22/21 18:53 18:53 18:53 WBC RBC Hgb Hct MCV MCH MCHC RDW Std Deviation RDW Coeff of Josue Plt Count MPV Immature Gran % (Auto) Neut % (Auto) Lymph % (Auto) [place] % (Auto) Eos % (Auto) Baso % (Auto) Neut # (Auto) Lymph # (Auto) [place] # (Auto) Eos # (Auto) Baso # (Auto) Immature Gran # (Auto) PT 11.7 INR 1.1 APTT 27.2 PTT Ratio 1.0 D-Dimer Sodium 137 Potassium 4.0 Chloride 103 Carbon Dioxide 27 Anion Gap 7 BUN 11 Creatinine 0.84 Est Cr Clr Drug Dosing 113.1 Est GFR ( Amer) 145.1 Est GFR (Non-Af Amer) 125.2 BUN/Creatinine Ratio 13.1 Glucose 82 Lactate Calcium 9.6 Phosphorus 4.2 Magnesium 2.2 Total Bilirubin 1.1 H Direct Bilirubin AST 434 H ALT 106 H Alkaline Phosphatase 51 Total Creatine Kinase 80093 H Troponin I High Sens B-Natriuretic Peptide Total Protein 7.3 Albumin 4.8 Globulin 2.5 Albumin/Globulin Ratio 1.9 Procalcitonin Anaplasma Smear Babesia Smear Lyme Disease IgG Ab Negative Lyme Disease IgM Ab Negative SARS-CoV-2 (PCR) Monoscreen Influenza Type A (PCR) Influ A Molecular Assay Influenza Type B (PCR) Influ B Molecular Assay RSV (RT-PCR) SARS-CoV-2 RNA (VIRA) 07/22/21 07/22/21 07/22/21 18:53 18:53 18:53 WBC RBC Hgb Hct MCV MCH MCHC RDW Std Deviation RDW Coeff of Josue Plt Count MPV Immature Gran % (Auto) Neut % (Auto) Lymph % (Auto) [place] % (Auto) Eos % (Auto) Baso % (Auto) Neut # (Auto) Lymph # (Auto) [place] # (Auto) Eos # (Auto) Baso # (Auto) Immature Gran # (Auto) PT INR APTT PTT Ratio D-Dimer Sodium Potassium Chloride Carbon Dioxide Anion Gap BUN Creatinine Est Cr Clr Drug Dosing Est GFR ( Amer) Est GFR (Non-Af Amer) BUN/Creatinine Ratio Glucose Lactate Calcium Phosphorus Magnesium Total Bilirubin Direct Bilirubin 0.2 AST ALT Alkaline Phosphatase Total Creatine Kinase Troponin I High Sens B-Natriuretic Peptide Total Protein Albumin Globulin Albumin/Globulin Ratio Procalcitonin < 0.05 Anaplasma Smear See Comment Babesia Smear See Comment Lyme Disease IgG Ab Lyme Disease IgM Ab SARS-CoV-2 (PCR) Monoscreen Influenza Type A (PCR) Influ A Molecular Assay Influenza Type B (PCR) Influ B Molecular Assay RSV (RT-PCR) SARS-CoV-2 RNA (VIRA) 07/22/21 07/22/21 07/22/21 19:08 19:08 19:08 WBC RBC Hgb Hct MCV MCH MCHC RDW Std Deviation RDW Coeff of Josue Plt Count MPV Immature Gran % (Auto) Neut % (Auto) Lymph % (Auto) [place] % (Auto) Eos % (Auto) Baso % (Auto) Neut # (Auto) Lymph # (Auto) [place] # (Auto) Eos # (Auto) Baso # (Auto) Immature Gran # (Auto) PT INR APTT PTT Ratio D-Dimer Sodium Potassium Chloride Carbon Dioxide Anion Gap BUN Creatinine Est Cr Clr Drug Dosing Est GFR ( Amer) Est GFR (Non-Af Amer) BUN/Creatinine Ratio Glucose Lactate Calcium Phosphorus Magnesium Total Bilirubin Direct Bilirubin AST ALT Alkaline Phosphatase Total Creatine Kinase Troponin I High Sens B-Natriuretic Peptide Total Protein Albumin Globulin Albumin/Globulin Ratio Procalcitonin Anaplasma Smear Babesia Smear Lyme Disease IgG Ab Lyme Disease IgM Ab SARS-CoV-2 (PCR) NEGATIVE Monoscreen Influenza Type A (PCR) Negative Influ A Molecular Assay Cancelled Influenza Type B (PCR) Negative Influ B Molecular Assay Cancelled RSV (RT-PCR) Negative SARS-CoV-2 RNA (VIRA) Cancelled 07/22/21 07/22/21 07/23/21 21:24 21:26 01:15 WBC RBC Hgb Hct MCV MCH MCHC RDW Std Deviation RDW Coeff of Josue Plt Count MPV Immature Gran % (Auto) Neut % (Auto) Lymph % (Auto) [place] % (Auto) Eos % (Auto) Baso % (Auto) Neut # (Auto) Lymph # (Auto) [place] # (Auto) Eos # (Auto) Baso # (Auto) Immature Gran # (Auto) PT INR APTT PTT Ratio D-Dimer Sodium Potassium Chloride Carbon Dioxide Anion Gap BUN Creatinine Est Cr Clr Drug Dosing Est GFR ( Amer) Est GFR (Non-Af Amer) BUN/Creatinine Ratio Glucose Lactate 0.7 Calcium Phosphorus Magnesium Total Bilirubin Direct Bilirubin AST ALT Alkaline Phosphatase Total Creatine Kinase Troponin I High Sens 32.5 H B-Natriuretic Peptide 18 Total Protein Albumin Globulin Albumin/Globulin Ratio Procalcitonin Anaplasma Smear Babesia Smear Lyme Disease IgG Ab Lyme Disease IgM Ab SARS-CoV-2 (PCR) Monoscreen Influenza Type A (PCR) Influ A Molecular Assay Influenza Type B (PCR) Influ B Molecular Assay RSV (RT-PCR) SARS-CoV-2 RNA (VIRA) 07/23/21 07/23/21 07/23/21 09:52 09:52 09:52 WBC 4.78 L RBC 4.47 L Hgb 13.1 L Hct 38.3 L MCV 85.7 MCH 29.3 MCHC 34.2 RDW Std Deviation 43.0 RDW Coeff of Josue 13.6 Plt Count 172 MPV 11.4 H Immature Gran % (Auto) 0.2 Neut % (Auto) 64.8 Lymph % (Auto) 22.6 [place] % (Auto) 10.5 Eos % (Auto) 1.7 Baso % (Auto) 0.2 Neut # (Auto) 3.10 Lymph # (Auto) 1.08 L [place] # (Auto) 0.50 Eos # (Auto) 0.08 Baso # (Auto) 0.01 Immature Gran # (Auto) 0.01 PT INR APTT PTT Ratio D-Dimer Sodium 140 Potassium 3.7 Chloride 107 Carbon Dioxide 28 Anion Gap 5 BUN 10 Creatinine 0.68 Est Cr Clr Drug Dosing 180.6 Est GFR ( Amer) > 150.0 Est GFR (Non-Af Amer) 136.5 BUN/Creatinine Ratio 14.7 Glucose 91 Lactate Calcium 8.7 Phosphorus Magnesium Total Bilirubin 1.1 H Direct Bilirubin AST 264 H ALT 84 H Alkaline Phosphatase 41 Total Creatine Kinase Troponin I High Sens B-Natriuretic Peptide Total Protein 6.1 Albumin 4.0 Globulin 2.1 L Albumin/Globulin Ratio 1.9 Procalcitonin Anaplasma Smear Babesia Smear Lyme Disease IgG Ab Lyme Disease IgM Ab SARS-CoV-2 (PCR) Monoscreen Negative Influenza Type A (PCR) Influ A Molecular Assay Influenza Type B (PCR) Influ B Molecular Assay RSV (RT-PCR) SARS-CoV-2 RNA (VIRA) Diagnostic Findings Echocardiogram performed today revealed essentially preserved LV systolic function without regional wall motion abnormalities. Very mild dilation in the left ventricle. Compared directly to his last study from 2020 no significant change. PG Care Time/CCT Total # of Minutes Spent Total Time Spent with Patient: Total time spent is greater than 50% in coordination of care (as documented) at patient's floor/unit and/or counseling patient: Coding Level of Care Code 98199 Office/OBS Consult Lvl 4 Diagnoses Chest discomfort R07.89 Elevated troponin R77.8 Cardiomyopathy I42.9
[2021-07-23 11:07] LABS: Creatine Kinase 5313 U/L (30-223)
--- NOTE | 2021-07-23 11:49 | Electrocardiogram Report ---
Test Reason : Blood Pressure : / mmHG Vent. Rate : 056 BPM Atrial Rate : 056 BPM P-R Int : 174 ms QRS Dur : 116 ms QT Int : 428 ms P-R-T Axes : 063 -87 065 degrees QTc Int : 413 ms Sinus bradycardia with sinus arrhythmia Incomplete right bundle branch block Left anterior fascicular block Abnormal ECG Confirmed by Donovan Mello ([id number]) on 07/23/2021 11:49:00 AM Referred By: REFERRED SELF Confirmed By:Jose Angel Mello
--- NOTE | 2021-07-23 20:28 | Billing Data ---
Date of Service July 23, 2021 Coding Level of Care Code 38454 Initial Inpt Care Lvl 3
[2021-07-24] MEDS: SODIUM CHLORIDE 0.9% 1000ML 1,000 ML IV SCH ×3 (01:03→09:04)
[2021-07-24 05:31] LABS: HBSAG NON-REACTIVE (NON-REACTIVE)
--- NOTE | 2021-07-24 07:17 | Hospitalist Progress Note ---
Date of Service July 24, 2021 Assessment & Plan (1) Chest discomfort: (2) Elevated LFTs: (3) Elevated troponin: (4) Elevated creatine kinase: Plan: Macho Ely is a 21-year-old male with a past medical history of aspiration pneumonia with mediastinitis and myocarditis with resulting reduced ejection fraction who presents today due to a 5-day history of chest discomfort and body aches. Found to have elevated troponin, transaminitis, elevated creatinine kin ase. Chest discomfort with elevated troponin Troponin to 32.8, EKG with sinus bradycardia, sinus arrhythmia, pre-existing incomplete RBBB Patient with a history of myocarditis in December 2019 and subsequent reduced ejection fraction Most recent echo at [facility] on July 05, 2021 showing EF of 51%, per patient and mother at bedside consider requesting records for confirmation Unclear etiology, potentially viral illness with mild demand ischemia in a patient with decreased EF no current signs of UT, pericarditis Lyme negative, Anaplasma/Babesia smear negative (PCR pending) Consult cardiology Repeat echo in a.m. as last echo was prior to current symptoms Trend Trop Admit to med telemetry Continuous cardiac monitoring Continue home metoprolol succinate [address] [place] [address] [place] admission Patient reports dancing for several hours on Sunday night, but otherwise no other vigorous/significant exercise Gentle IV fluids in the setting of mildly decreased EF as above Repeat CK in a.m. Transaminitis Unclear etiology, patient had elevated transaminitis on his prior admission in December 2019 At that visit, transaminitis thought to be more likely due to alcohol consumption, which had been heavier at that instance this time around patient admits to 3 drinks on Sunday evening, night prior to onset of symptoms However, would not necessarily expect transaminitis from that level of alcohol consumption Check hep B, hep C, EBV, coxsackie, monotest Repeat CMP in a.m. DVT prophylaxis: SCDs, no chemoprophylaxis Diet: Heart healthy Dispo: Admit for observation to med telemetry CODE STATUS: Full Admission and Anticipated Discharge Date Admission Date: July 22, 2021 Results & Data Results & Data ([facility]) Vital Signs (Past 12 Hours) Vital Signs Temp Pulse Pulse Resp BP Pulse Ox 07/24/21 03:08 36.8 C 59 L 18 99/58 L 95 07/23/21 23:30 61 07/23/21 23:20 36.9 C 60 18 109/61 96
[2021-07-24 07:18] LABS: Anion Gap 4 (3-11); BUN Creatinine Ratio 12.5 (10-20); Blood Urea Nitrogen 8 mg/dl (6-23); Calcium 8.5 mg/dl (8.5-10.1); Carbon Dioxide 26 mmol/L (21-32); Chloride 109 mmol/L (98-107); Creatinine Clr Calc Pharmacy 192.9 ml/min; Est GFR (African American) > 150.0 ml/min; Glucose 74 mg/dl (70-99(Fasting)); Potassium 3.7 mmol/L (3.5-5.1); Sodium 139 mmol/L (136-145)
--- NOTE | 2021-07-24 07:20 | Electrocardiogram Report ---
Test Reason : Blood Pressure : / mmHG Vent. Rate : 051 BPM Atrial Rate : 051 BPM P-R Int : 188 ms QRS Dur : 114 ms QT Int : 450 ms P-R-T Axes : 054 265 056 degrees QTc Int : 414 ms Sinus bradycardia Incomplete right bundle branch block Left axis deviation Abnormal ECG When compared with ECG of 22-JUL-2021 18:44, No significant change was found Confirmed by Donovan Mello ([id number]) on 07/24/2021 7:19:47 AM Referred By: REFERRED SELF Confirmed By:Jose Angel Mello
[2021-07-24 07:25] LABS: Alanine Aminotransferase 76 U/L (7-52); Albumin Globulin Ratio 1.9 (0.9-2); Albumin Level 3.7 gm/dl (3.4-5.0); Alkaline Phosphatase 37 U/L (34-104); Aspartate Aminotransferase 165 U/L (13-39); Bilirubin,Total 0.9 mg/dl (0.2-1.0); Total Protein 5.7 gm/dl (6.0-8.3)
[2021-07-24 07:39] LABS: Creatine Kinase 2673 U/L (30-223)
[2021-07-24 08:18] LABS: Basophils # (auto) 0.02 K/uL (0-0.2); Basophils % (auto) 0.4 %; Eosinophils # (auto) 0.07 K/uL (0-0.5); Eosinophils % (auto) 1.4 %; Hematocrit (blood only) 39.3 % (42-52); Hemoglobin 13.1 g/dL (14.0-18.0); Immature Granulocytes # (auto) 0.01 K/uL (0.00-0.02); Immature Granulocytes % (auto) 0.2 %; Lymphocytes # (auto) 1.48 K/uL (1.2-3.4); Lymphocytes % (auto) 29.2 %; Mean Corpuscular Hemoglobin 28.7 pg (25-34); Mean Corpuscular Hgb Conc 33.3 g/dL (32-36); Monocytes # (auto) 0.44 K/uL (0.11-0.59); Monocytes % (auto) 8.7 %; Neutrophils # (auto) 3.05 K/uL (1.4-6.5); Neutrophils % (auto) 60.1 %; Platelet Count 175 K/uL (130-400); RDW Coefficient of Variation 13.5 % (11.5-14.5); RDW Standard Deviation 42.6 fL (36.4-46.3); Red Blood Count 4.57 M/uL (4.7-6.1); White Blood Count 5.07 K/uL (4.8-10.8)
[2021-07-24] MEDS: METOPROLOL SUCC 50MG EXT REL TAB PO SCH (10:04)
--- NOTE | 2021-07-24 10:11 | Discharge Summary ---
Date of Service July 24, 2021 Admission HPI Per Admitting Provider Macho Ely is a 21-year-old male with a past medical history of aspiration pneumonia with mediastinitis and myocarditis with resulting reduced ejection fraction who presents today due to a 5-day history of chest discomfort and body aches. He also reports having dull chest pain, specifically when sitting up from laying in flat position. Patient specifies that he only feels the pain when he is in the process of sitting up, not when he is laying flat or when he is sitting. Denies any known sick contacts, cough, fever, chills, nausea, vomiting, diarrhea, rashes. Patient states that he was out dancing at a club on Sunday night and had a total of 3 alcoholic beverages, which he states had 1 shot of alcohol each. Started to feel above symptoms the next day. In the ED, patient received NSS 2 L boluses, received acetaminophen 1000 mg x 1, famotidine 20 mg x 1. He had lab work showing normal white count, normal hemoglobin, normal platelets. Normal electrolytes. Did have elevated AST to 434, ALT to 106, T bili to 1.1[place] [address], high-sensitivity troponin to 32.8. EKG showed sinus bradycardia with sinus arrhythmia and a pre-existing incomplete right bundle branch block. Lyme testing was negative, Anaplasma and babesiosis smears were negative, with PCR's for each pending. Chest x-ray showed no acute process. Admission Exam Per Admitting Provider GENERAL: A&Ox3. NAD. HEENT: PERRL, EOMI. Moist mucous membranes. NECK: No JVD. No lymphadenopathy. CHEST/LUNGS: CTAB A/P. No crackles, wheezes, rales, rhonchi. HEART: Bradycardic, regular rhythm. No m/g/r. ABDOMEN: NT/ND, soft. BS+ x4 EXTREMITIES: No cyanosis, no clubbing, no edema SKIN: Warm and dry. No rashes or lesions. No jaundice. PSYCHIATRIC: Euthymic affect, no SI, no pressured speech, no hallucinations NEUROLOGIC: No FND. Principal Diagnosis rhabdomyolysis Discharge Exam Constitutional:skinny, in no apparent distress, sitting comfortably in bed. Eyes: EOMI, pupils equal and reactive bilaterally, no scleral icterus Cardiac: RRR, no murmurs, gallops or rubs. Normal S1, S2 Pulm: CTA BL, no wheezes, rhonchi, crackles or rubs, moving air well throughout both lungs Abd: soft, nontender, nondistended, normal bowel sounds, no rebound or guarding Extremities: 2+ peripheral pulses, no edema Neuro: no focal deficits, moving all 4 limbs, A&Ox3, equal strength throughout Discharge Data Allergies Allergy/AdvReac Type Severity Reaction Status Date / Time No Known Allergies Allergy Verified 07/22/21 19:17 Consultations 07/22/21 22:44 ED Decision to Admit Stat 07/23/21 01:07 Consult Cardiology Routine Procedures Performed TTE 07/23/21: Left ventricular function low normal Left ventricle mildly dilated Left ventricular wall motion is normal Right Ventricular pressure normal. EF 50-55% Hospital Course (1) Chest discomfort: (2) Elevated LFTs: (3) Elevated troponin: (4) Elevated creatine kinase: Macho Ely is a 21-year-old male with a past medical history of aspiration pneumonia with mediastinitis and myocarditis with resulting reduced ejection fraction who presents today due to a 5-day history of chest discomfort and body aches. Found to have elevated troponin, transaminitis, elevated creatinine kinase. Chest discomfort with elevated troponin High sensitivity troponins stable/downtrending from 32 to 24. EKG with sinus bradycardia, sinus arrhythmia, pre-existing incomplete RBBB - Repeat TTE with results as above, essential unchanged from 2 years prior. EF 50-55%, no valvular or ventricular dysfunction. - unclear etiology, viral process vs. demand process Lyme negative, Anaplasma/Babesia smear negative (PCR pending), monospot negative. - No changes made to daily metoprolol succinate dosing of 100 [place] [address] [place] admission, unclear etiology with only aberrancy being dancing on Sunday night and having 3 shots of alcohol. - no signs of family or personal history myopathies - Downtrending well with IVF; discharged with CK of 2673, recommend CK recheck in 2-3 days Transaminitis Unclear etiology, patient had elevated transaminitis on his prior admission in December 2019 At that visit, transaminitis thought to be more likely due to alcohol consumption, which had been heavier at that instance this time around patient admits to 3 drinks on Sunday evening, night prior to onset of symptoms. However, would not necessarily expect transaminitis from that level of alcohol consumption Hepatitis panel, monotest negative. EBV still pending - Discharged with reducing but not yet normal transaminases. AST 434 -> 165, ALT 106 -> 76. No alkphos elevation. Normal PT/INR, platelet, albumin, Tbili. normal Cr of 0.64. - consider workup for ROQUE vs. autoimmune hepatitis if not resolving. - Recommend hepatic panel 2-3 days from discharge All other chronic medical conditions controlled per home regimens. No local PCP, sees Dr. High for cardiology care. Advised establishing with local PCP for follow up of transaminitis and rhabdo. Total Time Total Time Spent Total Time Spent (In Minutes): see attending attestation Discharge Plan Discharge Items Patient Disposition: Home - Self-Care Reason For Visit: BODY ACHES, FATIGUE Discharge Diagnosis: Rhabdomyolysis Activity: Per Instructions section Lifting: No more than 25 pounds Bathing: No limitations Exercise/Sports: Gradually increase as tolerated Driving/Machine Use: No limitations Weightbearing: Full weightbearing Non-emergency contact: Primary Care Provider Call non-emergency contact if: your symptoms worsen Follow-up/Referrals: [facility] [Primary Care Provider] - Thea Tan MD [Resident] - (Please schedule follow up with a [facility] Resident in the next week) Diet: Regular Addtl Attending Provider Instructions: You were seen in the hospital for complaints of muscle weakness and soreness that occurred after dancing and alcohol intake. On admission, your Creatinine Kinase (CK) levels were noted to be very high (11,090), leading to a presumed diagnosis of Rhabdomyolysis (muscle breakdown). This was treated and managed by heavy hydration with IV fluids. We recommend cessation of alcohol for the time being, and exercise in moderation. If you have symptoms of muscle tightness, soreness, cramping pain, that does not go away as expected within a few days, we recommend being evaluated by your primary care physician or the ER if symptoms are severe. We advise keeping well hydrated with a goal of having clear urine to signify having proper hydration. Due to your history of myocarditis, you were evaluated by our cardiology team to ensure your heart continued to be healthy and was not involved in this acute episode. Your Echocardiogram showed that you have low normal (50-55%) ejection fraction and overall your heart is functioning healthily and well. No medication changes were made to your metoprolol. Continue taking this at home. If you have symptoms of lightheadedness, dizziness, fainting or near-fainting, talk to your mine wirer or primary care provider. During your hospitalization we noted that your liver enzymes were abnormally elevated. These improved with hydration, but remain elevated at this time. We talked about multiple etiologies of this, including Hepatitis, Viral infection, Genetic Disorder, Fatty Liver, and Alcoholic Hepatitis. Most of the tests we ran looking for infectious causes have returned negative (Lyme, Anaplasmosis, Babesiosis, COVID19, RSV, [place]). A hepatitis panel testing for Hepatitis B and C also returned negative. Results for the Julio C-Salvador Virus (EBV) and Coxsackie Virus will take a few days to return, but would not exchange mechanic at this point given your clinical improvement. All of the markers of liver FUNCTION have been appropriate, so this is reassuring. Most likely something has caused a state of liver INFLAMMATION. We recommend getting a follow up blood test for your liver enzymes in 2-3 days to ensure return to normal. Please follow up with a local primary care provider in the next week to go over the bloodwork and discuss if further tests or imaging needs to be done. If you would like to see a primary care provider with [facility], our office phone number is [phone]. We are located at [address] [place] [address], [place] [address], across from the hospital in the [facility] on the second floor. If you have questions, concerns, worsening symptoms, please reach out to your primary care provider. Fue un placer cuidar de ti [It was a pleasure taking care of you]. Pending Studies at Discharge: No Stand-Alone Forms: My [facility], Smoking Cessation Medications and DC Order Prescriptions: Continued metoprolol succinate 100 mg tablet extended release 24 hr 100 mg PO DAILY Qty: 90 RF: 3 acetaminophen [Tylenol] 325 mg Tablet 650 mg PO DIRECTED PRN (Reason: Pain) RF: 0 Discharge Orders: Discharge Order (Routine); Ordered 07/24/21 Ordered By: Thea Tan Admission Data Admit Date/Time: 07/22/21 23:55 Attending Provider: Cory Vergara Admit Provider: Pola Nj Primary Care Provider: [facility] Other Providers: Donovan Mello ; Nicola Gonzalez Other Interventions: Discharge Summary Assessment (RN) Last Done: 07/24/21 11:01 Supervising Physician Co-Signing Physician Notes I personally examined the patient and verified all richardson points of history and exa m, discussed case, and agree with decision making with Dr Tan Feels better feels up to going home. vitals noted nad heent nc at mmm breathing unlabored no accessory muscles good effort skin no rashes no pallor or icterus rhabdo - fortunately mild and no ARF. most strongly suspect viral/post viral immune mediated. improving on fluids. continue fluids. since had this now, post viral myocarditis 2019 -- discussed possibility of underlying autoimmune as unlikely, but real, possibility. after thorough discussions - if viral titers are negative when they come back - would be reasonable to pursue autoimmune w/u; or, even if current situation ends up strongly appearing viral - if another post-viral type syndrome happens for any reason then would rec autoimmune w/u. Has improvedstable for home. P.o. fluid intake transaminitis - likely both muscle transaminases and probably liver - viral mediated. improving. Outpatient follow-up mild trop elevation - fortunately went nowhere and echo reassuring. overall doubt much true acute myocarditis at play, if at all. appreciate cardiology input otherwise as above Resident Activity Tracking Resident Involvement: Resident Care Provided Care Provided: Adult Hospital Medicine
--- NOTE | 2021-07-24 17:33 | Billing Data ---
Date of Service July 24, 2021 Coding Level of Care Code 57775 OBS Care - Discharge
[2021-07-27 19:02] LABS: Coxsackie A10 <1:8; Coxsackie A16 <1:8; Coxsackie A2 <1:8; Coxsackie A4 <1:8; Coxsackie A7 <1:8; Coxsackie A9 <1:8; Coxsackie B1 <1:8 (<1:8); Coxsackie B2 <1:8 (<1:8); Coxsackie B3 <1:8 (<1:8); Coxsackie B4 <1:8 (<1:8); Coxsackie B5 <1:8 (<1:8); Epstein Barr Virus Early Ag Ab <9.00 U/mL; Hepatitis B Core Antibody IgM NON-REACTIVE (NON-REACTIVE)
[2021-07-28 08:51] LABS: Babesia microti DNA Not Detected (Not Detected)
== END 2021-07-24 12:00 | disposition home or self-care (01) ==
LOC: ED 18:16 → 2N 18:16 → SUATTDRO 23:55 → 2N 07-23 00:57